=== PATIENT | male | born 1990 | race Two or more races ===

== ENCOUNTER 2020-07-16 17:23 | Emergency (ER) | payer OTHER ==
[~2020-07-16] VITALS: Ht 172.7 cm; Wt 97.5 kg
[2020-07-16 21:45] VITALS: BP 126/78
== END 2020-07-16 21:52 | disposition home or self-care (01) ==
LOC: ER 17:23
DX: S93.602A Unspecified sprain of left foot, initial encounter (principal); S90.32XA Contusion of left foot, initial encounter; S99.922A Unspecified injury of left foot, initial encounter; W01.0XXA Fall on same level from slipping, tripping and stumbling without subsequent striking against object, initial encounter; Y93.89 Activity, other specified; Y92.89 Other specified places as the place of occurrence of the external cause; Y99.8 Other external cause status
CPT/HCPCS: 73630